=== PATIENT | female | born 1985 | race Caucasian/White ===

== ENCOUNTER 2017-02-05 09:11 | Emergency (ER) | payer OTHER ==
[2017-02-05 09:16] VITALS: RESP 18
[2017-02-05 09:42] LABS: Appearance,Urine Clear (Clear); Bilirubin,Urine Negative (Negative); Glucose,Urine (UA) Negative (Negative); Ketones,Urine Negative (Negative); Leukocyte Esterase,Urine Negative (Negative); Nitrite,Urine Negative (Negative); PH, Urine 5.5 (5.0-8.0); Particle Count 1326; Protein,Urine Negative (Negative); RBC,Urine 108 /hpf (0-5); Specific Gravity,Urine 1.008 (1.001-1.035); Squamous Epithelial Cell,Urine <1 /hpf (0-4); UA Billing (MACRO vs. MICRO) MICRO; Urobilinogen,Urine <2.0 mg/dL (<2.0); WBC,Urine 2 /hpf (0-5)
[2017-02-05 10:59] VITALS: PULSE 76
--- NOTE | 2017-02-05 11:25 | ED ---
General Adult HPI - General Chief complaint: Vaginal Bleeding Stated complaint: preg/bleeding Time Seen by Provider: 02/05/17 09:20 Source: patient Mode of arrival: ambulatory Limitations: no limitations - Related Data Home Medications Medication Instructions Recorded Confirmed Zfo-Qixk-Dglfx Acid 1 cap PO DAILY 02/05/17 02/05/17 [-U Capsule (formulary)] Allergies Allergy/AdvReac Type Severity Reaction Status Date / Time sumatriptan [From Imitrex] Allergy Anaphylaxis Verified 02/05/17 09:41 sumatriptan succinate Allergy Anaphylaxis Verified 02/05/17 09:41 [From Imitrex] Review of Systems ROS Statement: Those systems with pertinent positive or pertinent negative responses have been documented in the HPI. ROS Other: All systems not noted in ROS Statement are negative. Past Medical History Past Medical History: No Reported History Additional Past Medical History / Comment(s): Hx of Migraine headaches r/t occipital nerve damage, no current med tx. History of Any Multi-Drug Resistant Organisms: None Reported Past Surgical History: Section, Cholecystectomy Additional Past Surgical History / Comment(s): right ring finger reattached 2007 , Thrombectomy Past Anesthesia/Blood Transfusion Reactions: No Reported Reaction Additional Past Anesthesia/Blood Transfusion Reaction / Comment(s): no history Past Psychological History: No Psychological Hx Reported Smoking Status: Former smoker Past Alcohol Use History: Occasional Past Drug Use History: None Reported - Past Family History Mother Family Medical History: Diabetes Mellitus, Hyperlipidemia Father History Unknown: Yes General Exam Limitations: no limitations Course Vital Signs 02/05/17 02/05/17 09:12 10:58 Temperature 99.0 F Pulse Rate 89 76 Respiratory 18 18 Rate Blood Pressure 150/90 97/56 O2 Sat by Pulse 99 100 Oximetry Medical Decision Making - Lab Data Lab Results 02/05/17 02/05/17 02/05/17 Range/Units 09:32 09:32 09:32 HCG, Quant 432.4 mIU/mL Urine Color Light Yellow Urine Appearance Clear (Clear) Urine pH 5.5 (5.0-8.0) Ur Specific [place] 1.008 (1.001-1.035) Urine Protein Negative (Negative) Urine Glucose (UA) Negative (Negative) Urine Ketones Negative (Negative) Urine Blood Moderate H (Negative) Urine Nitrite Negative (Negative) Urine Bilirubin Negative (Negative) Urine Urobilinogen <2.0 (<2.0) mg/dL Ur Leukocyte Esterase Negative (Negative) Urine RBC 108 H (0-5) /hpf Urine WBC 2 (0-5) /hpf Ur Squamous Epith Cells <1 (0-4) /hpf Blood Type A Positive Blood Type Recheck No Disposition Clinical Impression: Threatened miscarriage Disposition: HOME SELF-CARE Condition: Good Instructions: Threatened Miscarriage (ED) Additional Instructions: Patient has a follow-up with primary care provider. Patient needs to repeat her blood work in 2 days. Take Tylenol for pain. Return to emergency department if any alarming signs or symptoms occur. Referrals: Melvi Acosta MD [Primary Care Provider] - 1-2 days Time of Disposition: 11:23
[2017-02-05 11:37] VITALS: BP 112/70; TEMP 98.5
== END 2017-02-05 11:40 | disposition home or self-care (01) ==
LOC: EC 09:11
DX: O20.0 Threatened abortion (principal); Z3A.00 Weeks of gestation of pregnancy not specified; Z87.891 Personal history of nicotine dependence; Z88.8 Allergy status to other drugs, medicaments and biological substances
CPT/HCPCS: 36415; 81001; 84702; 86900; 86901; 99283

== ENCOUNTER → 2017-02-07 | Outpatient (CLI) | payer OTHER | END | disposition home or self-care (01) | LOC: LABWHC1 10:08 | PROVIDERS: ATTEND Obstetrics & Gynecology | DX: O20.0 Threatened abortion (principal) | CPT/HCPCS: 36415; 84702 ==

== ENCOUNTER → 2017-02-12 | Outpatient (CLI) | payer OTHER | END | disposition home or self-care (01) | LOC: LABWHC1 12:56 | PROVIDERS: ATTEND Obstetrics & Gynecology | DX: O20.0 Threatened abortion (principal); Z3A.00 Weeks of gestation of pregnancy not specified | CPT/HCPCS: 36415; 84702 ==

== ENCOUNTER → 2017-02-18 | Outpatient (CLI) | payer OTHER | LOC: LAB 20:33 | PROVIDERS: ATTEND Internal Medicine | DX: O02.1 Missed abortion (principal); Z53.9 Procedure and treatment not carried out, unspecified reason ==

== ENCOUNTER → 2017-03-20 | Outpatient (CLI) | payer OTHER | END | disposition home or self-care (01) | LOC: LABWHC1 13:10 | PROVIDERS: ATTEND Obstetrics & Gynecology | DX: O03.9 Complete or unspecified spontaneous abortion without complication (principal) | CPT/HCPCS: 36415; 84702 ==

== ENCOUNTER → 2017-04-16 | Outpatient (CLI) | payer OTHER | END | disposition home or self-care (01) | LOC: LABWHC1 16:13 | PROVIDERS: ATTEND Obstetrics & Gynecology | DX: N92.5 Other specified irregular menstruation (principal) | CPT/HCPCS: 36415; 84702 ==

== ENCOUNTER → 2017-04-21 | Outpatient (CLI) | payer OTHER | END | disposition home or self-care (01) | LOC: LABWHC1 10:35 | PROVIDERS: ATTEND Obstetrics & Gynecology | DX: N92.5 Other specified irregular menstruation (principal) | CPT/HCPCS: 36415; 84702 ==

== ENCOUNTER 2017-05-08 12:38 | Emergency (ER) | payer OTHER ==
--- NOTE | 2017-05-08 13:07 | ED ---
Female Urogenital HPI - General Chief complaint: Vaginal Bleeding Stated complaint: Vaginal Bleeding-8 weeks preg Source: patient Mode of arrival: ambulatory Limitations: no limitations - History of Present Illness Initial comments: Patient is a 31-year-old female who presents for evaluation for vaginal bleeding and lower pelvic cramping. Past medical history as below. Patient is a . 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 She is followed by Dr. Dixon (OB). The cramping started yesterday. Nothing seems to make it better or worse. No radiation of pain. She did not try taking any Tylenol for this pain. She has associated nausea which is an ongoing issue. Thought to be related to morning sickness. She is regularly taking a vitamin. She describes the vaginal bleeding as very mild. Less than a liner. Not soaking through pads. Seems to fluctuate. She discussed this with her OB and recommended coming to the emergency department for further evaluation. No history of sexually transmitted infections. No history of ectopic . She does not know why she keeps having miscarriages. She currently denies fever , chills, headache, changes of vision, URI symptoms, sugars breath, cough, chest pain, vomiting, diarrhea, pain or burning with urination. Last Menstrual Period: 03/13/17 - Related Data Home Medications Medication Instructions Recorded Confirmed Tvf-Tzoj-Ahusj Acid 1 cap PO DAILY 02/05/17 05/08/17 [-U Capsule (formulary)] Previous Rx's Medication Instructions Recorded Nitrofurantoin Monohyd/M-Cryst 100 mg PO Q12HR #14 cap 05/08/17 [Macrobid] Allergies Allergy/AdvReac Type Severity Reaction Status Date / Time sumatriptan [From Imitrex] Allergy Anaphylaxis Verified 05/08/17 13:06 sumatriptan succinate Allergy Anaphylaxis Verified 05/08/17 13:06 [From Imitrex] Review of Systems ROS Statement: Those systems with pertinent positive or pertinent negative responses have been documented in the HPI. ROS Other: All systems not noted in ROS Statement are negative. Past Medical History Past Medical History: No Reported History Additional Past Medical History / Comment(s): Hx of Migraine headaches r/t occipital nerve damage, no current med tx. History of Any Multi-Drug Resistant Organisms: None Reported Past Surgical History: Section, Cholecystectomy Additional Past Surgical History / Comment(s): right ring finger reattached 2008 , Thrombectomy Past Anesthesia/Blood Transfusion Reactions: No Reported Reaction Additional Past Anesthesia/Blood Transfusion Reaction / Comment(s): no history Past Psychological History: No Psychological Hx Reported Smoking Status: Former smoker Past Alcohol Use History: Occasional Past Drug Use History: None Reported - Past Family History Mother Family Medical History: Diabetes Mellitus, Hyperlipidemia Father History Unknown: Yes General Exam Limitations: no limitations General appearance: alert, in no apparent distress, other (Nontoxic appearing) Head exam: Present: atraumatic, normocephalic, normal inspection Eye exam: Present: normal appearance, PERRL, EOMI. Absent: scleral icterus, conjunctival injection, periorbital swelling ENT exam: Present: normal exam, mucous membranes moist Neck exam: Present: normal inspection. Absent: tenderness, meningismus, lymphadenopathy Respiratory exam: Present: normal lung sounds bilaterally. Absent: respiratory distress, wheezes, rales, rhonchi, stridor Cardiovascular Exam: Present: regular rate, normal rhythm, normal heart sounds. Absent: systolic murmur, diastolic murmur, rubs, gallop, clicks GI/Abdominal exam: Present: soft, tenderness, normal bowel sounds, other (Mild suprapubic tenderness. Negative McBurney sign. Soft abdomen. No peritoneal signs.). Absent: distended, guarding, rebound, rigid By manual exam: Present: other (Attempted speculum exam and bimanual exam. Aborted secondary to the patient being in significant amount of pain. There is no obvious vaginal bleeding though it was a limited exam. Cannot feel the cervical os. She did have some right adnexal tenderness. Again the exam is very limited.) Extremities exam: Present: normal inspection, full ROM, normal capillary refill. Absent: tenderness, pedal edema, joint swelling, calf tenderness Back exam: Present: normal inspection Neurological exam: Present: alert, oriented X3, CN II-XII intact Psychiatric exam: Present: normal affect, normal mood Skin exam: Present: warm, dry, intact, normal color. Absent: rash Course Vital Signs 05/08/17 05/08/17 12:51 15:08 Temperature 97 F L 98.2 F Pulse Rate 68 102 H Respiratory 20 16 Rate Blood Pressure 120/84 113/66 O2 Sat by Pulse 100 100 Oximetry Medical Decision Making - Medical Decision Making Patient is a 31-year-old presenting with vaginal bleeding and lower pelvic cramping. History of multiple miscarriages. No history of ectopic. Limited pelvic examination. Apparently had negative STI testing last week at her OB intake exam. We'll order basic labs with type and screen, urinalysis with urine Chlamydia/gonorrhea. Just sound. IV fluids. Tylenol. - Performed pelvic examination with nurse mission manager. Family member in the room but pt stated it was ok for them to stay. Did not tolerate speculum exam. Aborted. Did not tolerate bimanual exam which was also aborted. She did have some pain in the right adnexa though it was a very limited examination. Could not evaluate if the cervical os was opened or closed. Awaiting US findings/labs. 1500: Laboratory findings as below. No significant abnormalities. Rh+. Questionable urinary tract infection. Rx macrobid for asymptomatic pyuria which could possibly cause miscarriage. Beta-hcg appropriate for dates. Ultrasound revealed a single live IUP at about 6 weeks gestation. No evidence of ectopic . I went to discuss the findings with the patient and she was very upset. She started yelling at me in the room. A tech was in the room and witnessed this. Stated "get this fucking IV out of my arm." Then proceeded to be verbally abusive stating "you are a horrible doctor" and "you don't care about me." I was a little taken aback by this as I clearly described my concerns with her hx of recurrent miscarriages upfront. I recommended treatment with abx for ?cervicitis and the pt refused treatment stating "you don't listen to me." She did have negative STI testing at her OB intake earlier this week. However, she did have unprotected sexual intercourse twice since that negative testing. I again attempted to discuss my concerns and reiterate the findings of a threatened miscarriage. I discussed specific signs and symptoms on when to return to the emergency department but the pt cut me off and stated "I'm never coming back here again." I recommended that she follow up with her OB in the next 24 hours. - Lab Data Result diagrams: 05/08/17 13:25 05/08/17 13:25 Lab Results 05/08/17 05/08/17 05/08/17 Range/Units 13:25 13:25 13:25 WBC 7.5 (3.8-10.6) k/uL RBC 4.50 (3.80-5.40) m/uL Hgb 13.0 (11.4-16.0) gm/dL Hct 38.7 (34.0-46.0) % MCV 85.9 (80.0-100.0) fL MCH 28.8 (25.0-35.0) pg MCHC 33.6 (31.0-37.0) g/dL RDW 11.4 L (11.5-15.5) % Plt Count 271 (150-450) k/uL Neutrophils % 71 % Lymphocytes % 20 % Monocytes % 7 % Eosinophils % 1 % Basophils % 1 % Neutrophils # 5.3 (1.3-7.7) k/uL Lymphocytes # 1.5 (1.0-4.8) k/uL Monocytes # 0.5 (0-1.0) k/uL Eosinophils # 0.1 (0-0.7) k/uL Basophils # 0.0 (0-0.2) k/uL Sodium 139 (137-145) mmol/L Potassium 3.7 (3.5-5.1) mmol/L Chloride 105 (98-107) mmol/L Carbon Dioxide 23 (22-30) mmol/L Anion Gap 11 mmol/L BUN 7 (7-17) mg/dL Creatinine 0.60 (0.52-1.04) mg/dL Est GFR (MDRD) Af Amer >60 (>60 ml/min/1.73 sqM) Est GFR (MDRD) Non-Af >60 (>60 ml/min/1.73 sqM) Glucose 106 H (74-99) mg/dL Calcium 9.6 (8.4-10.2) mg/dL Magnesium 1.8 (1.6-2.3) mg/dL Total Bilirubin 0.2 (0.2-1.3) mg/dL AST 17 (14-36) U/L ALT 29 (9-52) U/L Alkaline Phosphatase 36 L (38-126) U/L Total Protein 6.8 (6.3-8.2) g/dL Albumin 4.3 (3.5-5.0) g/dL HCG, Quant 27279.3 mIU/mL Urine Color Urine Appearance (Clear) Urine pH (5.0-8.0) Ur Specific [place] (1.001-1.035) Urine Protein (Negative) Urine Glucose (UA) (Negative) Urine Ketones (Negative) Urine Blood (Negative) Urine Nitrite (Negative) Urine Bilirubin (Negative) Urine Urobilinogen (<2.0) mg/dL Ur Leukocyte Esterase (Negative) Urine RBC (0-5) /hpf Urine WBC (0-5) /hpf Urine Mucus (None) /hpf Urine Sperm (None) /hpf Blood Type A Positive Blood Type Recheck No Antibody Screen NEGATIVE Spec Expiration Date 05/11/2017 - 232405/08/17 Range/Units 13:25 WBC (3.8-10.6) k/uL RBC (3.80-5.40) m/uL Hgb (11.4-16.0) gm/dL Hct (34.0-46.0) % MCV (80.0-100.0) fL MCH (25.0-35.0) pg MCHC (31.0-37.0) g/dL RDW (11.5-15.5) % Plt Count (150-450) k/uL Neutrophils % % Lymphocytes % % Monocytes % % Eosinophils % % Basophils % % Neutrophils # (1.3-7.7) k/uL Lymphocytes # (1.0-4.8) k/uL Monocytes # (0-1.0) k/uL Eosinophils # (0-0.7) k/uL Basophils # (0-0.2) k/uL Sodium (137-145) mmol/L Potassium (3.5-5.1) mmol/L Chloride (98-107) mmol/L Carbon Dioxide (22-30) mmol/L Anion Gap mmol/L BUN (7-17) mg/dL Creatinine (0.52-1.04) mg/dL Est GFR (MDRD) Af Amer (>60 ml/min/1.73 sqM) Est GFR (MDRD) Non-Af (>60 ml/min/1.73 sqM) Glucose (74-99) mg/dL Calcium (8.4-10.2) mg/dL Magnesium (1.6-2.3) mg/dL Total Bilirubin (0.2-1.3) mg/dL AST (14-36) U/L ALT (9-52) U/L Alkaline Phosphatase (38-126) U/L Total Protein (6.3-8.2) g/dL Albumin (3.5-5.0) g/dL HCG, Quant mIU/mL Urine Color Yellow Urine Appearance Clear (Clear) Urine pH 5.5 (5.0-8.0) Ur Specific [place] 1.014 (1.001-1.035) Urine Protein Negative (Negative) Urine Glucose (UA) Negative (Negative) Urine Ketones Trace H (Negative) Urine Blood Large H (Negative) Urine Nitrite Negative (Negative) Urine Bilirubin Negative (Negative) Urine Urobilinogen <2.0 (<2.0) mg/dL Ur Leukocyte Esterase Small H (Negative) Urine RBC 1 (0-5) /hpf Urine WBC 9 H (0-5) /hpf Urine Mucus Rare H (None) /hpf Urine Sperm Few H (None) /hpf Blood Type Blood Type Recheck Antibody Screen Spec Expiration Date Disposition Clinical Impression: Threatened miscarriage, Abdominal pain, Pelvic pain Disposition: HOME SELF-CARE Condition: Good Instructions: Threatened Miscarriage (ED), Abdominal Pain in (ED) Prescriptions: Nitrofurantoin Monohyd/M-Cryst [Macrobid] 100 mg PO Q12HR #14 cap Referrals: Melvi Acosta MD [Primary Care Provider] - 1-2 days Brennan Dixon MD [STAFF PHYSICIAN] - 1-2 days
[2017-05-08] MEDS ORDERED: SODIUM CHLORIDE 0.9% 1,000 ML IV ONE (13:08)
[2017-05-08] MEDS ORDERED: ACETAMINOPHEN TAB 500 MG TAB PO STA (13:08)
[2017-05-08 13:45] LABS: Basophils % (A) 1 %; CH 30.1; CHCM 35.2; Eosinophils # (A) 0.1 k/uL (0-0.7); Eosinophils % (A) 1 %; HCT 38.7 % (34.0-46.0); HDW 2.46; Luc # (Auto) 0.12; Luc % (Auto) 2; Lymphocytes # (A) 1.5 k/uL (1.0-4.8); Lymphocytes % (A) 20 %; MCH 28.8 pg (25.0-35.0); MCHC 33.6 g/dL (31.0-37.0); MCV 85.9 fL (80.0-100.0); Mean Platelet Volume 6.6; Monocytes # (A) 0.5 k/uL (0-1.0); Monocytes % (A) 7 %; Neutrophils # (A) 5.3 k/uL (1.3-7.7); Neutrophils % (A) 71 %; RDW 11.4 % (11.5-15.5); WBC 7.5 k/uL (3.8-10.6)
[2017-05-08 13:50] LABS: Appearance,Urine Clear (Clear); Bilirubin,Urine Negative (Negative); Glucose,Urine (UA) Negative (Negative); Ketones,Urine Trace (Negative); Leukocyte Esterase,Urine Small (Negative); Mucus,Urine Rare /hpf; Nitrite,Urine Negative (Negative); PH, Urine 5.5 (5.0-8.0); Particle Count 3723; Protein,Urine Negative (Negative); RBC,Urine 1 /hpf (0-5); Specific Gravity,Urine 1.014 (1.001-1.035); Sperm,Urine Few /hpf; UA Billing (MACRO vs. MICRO) MICRO; Urobilinogen,Urine <2.0 mg/dL (<2.0); WBC,Urine 9 /hpf (0-5)
[2017-05-08 13:54] LABS: ALT 29 U/L (9-52); AST 17 U/L (14-36); Alkaline Phosphatase 36 U/L (38-126); Anion Gap 11 mmol/L; Blood Urea Nitrogen 7 mg/dL (7-17); Calcium 9.6 mg/dL (8.4-10.2); Carbon Dioxide 23 mmol/L (22-30); Chloride 105 mmol/L (98-107); Glucose 106 mg/dL (74-99); Magnesium 1.8 mg/dL (1.6-2.3); Non-African American GFR(MDRD) >60 (>60 ml/min/1.73 sqM); Potassium 3.7 mmol/L (3.5-5.1); Sodium 139 mmol/L (137-145); Total Bilirubin 0.2 mg/dL (0.2-1.3); Total Protein 6.8 g/dL (6.3-8.2)
--- NOTE | 2017-05-08 14:19 | US ---
EXAMINATION TYPE: US OB <= 14 wk fetus DATE OF EXAM: 05/08/2017 COMPARISON: NONE CLINICAL HISTORY: Pain. Cramping and spotting today, bleeding worse after pelvic exam EXAM PERFORMED: OBTA EXAM MEASUREMENTS: GESTATIONAL AGE / DATING Physician Established: (7 weeks/0 days) EDC: 12/25/2017 Dates by LMP: LMP unknown Dates by First Scan: AMBULANCE DISPATCHER here, U/S yesterday at other facility Dates by Current Scan for: (6 weeks/4 days) EDC: 12/28/2017 MATERNAL ANATOMY Uterus: 8.4 x 5.6 x 5.3cm Right Ovary: 2.7 x 2.5 x 1.8cm Left Ovary: not seen due to overlying bowel gas Post CDS / Adnexa: wnl Presence of free fluid: no Presence of corpus luteal cyst: yes right ov = 1.8cm Presence of subchorionic bleed: no GESTATION / SURVEY CRL: 0.7 (6 weeks/4 days) MSD: wnl Yolk Sac (normal less than 6mm): 0.2cm Heart Rate: 123 bpm Rhythm: Normal IUP: Viable IUP Date of LMP: unknown Beta HcG (if available): pending Single live intrauterine gestation is confirmed as gestational sac, yolk sac, and pole are iden tified. No free fluid is seen in pelvic cul-de-sac. Right ovary is seen. Left ovary is not clearly identified. Within right ovary there is 1.9 cm oval an echoic lesion likely reflecting corpus luteal cyst. No suspicious extraovarian adnexal masses are not ed. IMPRESSION: Single live intrauterine gestation is confirmed, mean crown-rump length is 0.7 cm corresponding to 6 weeks 4 day old fetus.
[2017-05-08] MEDS ORDERED: AZITHROMYCIN 500 MG TAB PO STA (15:00)
[2017-05-08] MEDS ORDERED: cefTRIAXone 250 MG VIAL IM STA (15:00)
[2017-05-08 15:10] VITALS: BP 113/66; PULSE 102; RESP 16; TEMP 98.2
== END 2017-05-08 15:13 | disposition home or self-care (01) ==
LOC: EC 12:38
DX: O20.0 Threatened abortion (principal); Z3A.08 8 weeks gestation of pregnancy; Z87.891 Personal history of nicotine dependence; Z79.899 Other long term (current) drug therapy; Z88.8 Allergy status to other drugs, medicaments and biological substances; Z90.49 Acquired absence of other specified parts of digestive tract
CPT/HCPCS: 36415; 76801; 80053; 81001; 83735; 84702; 85025; 86850; 86900; 86901; 96360; 99284

== ENCOUNTER 2017-09-22 18:34 | Emergency (ER) | payer OTHER ==
[2017-09-22] MEDS ORDERED: AZITHROMYCIN 500 MG in SODIUM CHLORIDE 0.9% 250 ML IVPB STA (19:20)
--- NOTE | 2017-09-22 19:30 | ED ---
General Adult HPI - General Chief complaint: Shortness of Breath Stated complaint: Chest pain, SOB 26 weeks Time Seen by Provider: 09/22/17 19:07 Source: patient Mode of arrival: wheelchair Limitations: no limitations - History of Present Illness Initial comments: Patient presents with cough, states she was diagnosed with pneumonia at outside hospital, states she followed up with her OB doctor today who requested she come to the ER for admission to the hospital. Patient states last she had a CAT scan that showed no pulmonary embolism, however showed interstitial pneumonia. Patient admits to having a cough and feeling short of breath for the past 2 months. Patient states over the past week she has had some brown sputum. Patient states she's been taking Ceftin and azithromycin for the past 5 days. Denies abdominal pain, vaginal bleeding or discharge, urinary symptoms , nausea, vomiting, diarrhea, fevers, chills. - Related Data Home Medications Medication Instructions Recorded Confirmed Ojy-Vhrj-Buwwc Acid 1 cap PO DAILY 02/05/17 09/22/17 [-U Capsule (formulary)] Albuterol Inhaler [Ventolin Hfa 4 puff INHALATION RT-TID PRN 09/22/17 09/22/17 Inhaler] Azithromycin 250 mg PO DAILY 09/22/17 09/22/17 Cefuroxime Axetil [Ceftin] 500 mg PO BID 09/22/17 09/22/17 Allergies Allergy/AdvReac Type Severity Reaction Status Date / Time sumatriptan [From Imitrex] Allergy Anaphylaxis Verified 09/22/17 19:13 sumatriptan succinate Allergy Anaphylaxis Verified 09/22/17 19:13 [From Imitrex] Review of Systems ROS Statement: Those systems with pertinent positive or pertinent negative responses have been documented in the HPI. ROS Other: All systems not noted in ROS Statement are negative. Constitutional: Denies: fever, chills, weakness Eyes: Denies: vision change ENT: Denies: ear pain, throat pain, congestion Respiratory: Reports: cough, dyspnea. Denies: wheezes, hemoptysis, stridor Cardiovascular: Reports: dyspnea on exertion. Denies: chest pain, palpitations , edema, syncope Endocrine: Denies: fatigue Gastrointestinal: Denies: abdominal pain, nausea, vomiting, diarrhea, constipation Genitourinary: Denies: urgency, dysuria, frequency, hematuria Musculoskeletal: Denies: back pain, arthralgia, myalgia Skin: Denies: rash, change in color Neurological: Denies: headache, confusion Past Medical History Past Medical History: No Reported History Additional Past Medical History / Comment(s): H of Migraine headaches r/t occipital nerve damage, no current med tx. History of Any Multi-Drug Resistant Organisms: None Reported Past Surgical History: Section, Cholecystectomy Additional Past Surgical History / Comment(s): right ring finger reattached 2007 , Thrombectomy Past Anesthesia/Blood Transfusion Reactions: No Reported Reaction Additional Past Anesthesia/Blood Transfusion Reaction / Comment(s): no history Past Psychological History: No Psychological Hx Reported Smoking Status: Former smoker Past Alcohol Use History: Occasional Past Drug Use History: None Reported - Past Family History Mother Family Medical History: Diabetes Mellitus, Hyperlipidemia Father History Unknown: Yes General Exam - General Exam Comments Initial Comments: Sitting up in bed smiling. No acute distress. Well appearing. Well-groomed well-dressed. Limitations: no limitations General appearance: alert, in no apparent distress Head exam: Present: atraumatic, normocephalic Eye exam: Present: normal appearance, PERRL, EOMI ENT exam: Present: mucous membranes moist Neck exam: Present: normal inspection, full ROM. Absent: meningismus Respiratory exam: Present: normal lung sounds bilaterally. Absent: respiratory distress, wheezes, rales, rhonchi, stridor, accessory muscle use, decreased breath sounds, prolonged expiratory Cardiovascular Exam: Present: normal rhythm, tachycardia GI/Abdominal exam: Present: soft. Absent: distended, tenderness, guarding, rebound Extremities exam: Present: normal inspection, normal capillary refill. Absent: pedal edema, joint swelling, calf tenderness Neurological exam: Present: alert, oriented X3 Psychiatric exam: Present: normal affect, normal mood Skin exam: Present: warm, dry, intact, normal color. Absent: rash, cyanosis, diaphoretic, erythema Course Vital Signs 09/22/17 09/22/17 09/22/17 19:03 19:53 20:03 Temperature 98.9 F Pulse Rate 125 H 138 H 142 H Respiratory 22 Rate Blood Pressure 146/64 O2 Sat by Pulse 98 Oximetry 09/22/17 09/22/17 20:32 21:41 Temperature 98.1 F Pulse Rate 129 H 130 H Respiratory 18 18 Rate Blood Pressure 130/68 129/78 O2 Sat by Pulse 100 99 Oximetry Medical Decision Making - Medical Decision Making Spoke with patient's OB Dr Dixon, updated with patient condition, he states patient spoke with his office today, he did not seek [place] patient, however he recommended patient go to ER for evaluation. States patient does not need to be admitted if she is well-appearing deemed stable for out-patient therapy. Patient request breathing treatment, ordered. EKG sinus tachycardia, heart rate 129, no ST or T-wave changes appreciated. heart tones done by OB team, FHR 120-130 WBC 15, giving normal elevation in Blood cultures drawn Patient sitting comfortably in bed, remains well-appearing, oxygen saturation remains 99% on room air. Patient has been updated with the results. Patient does not appear septic at this time. Patient no respiratory distress. Patient states she has albuterol inhaler she can use at home. Patient states she has an appointment in 3 days with the day worker. Patient had a CT PE study that was negative for days ago, although patient's heart rate remains elevated, this may be normal for , as well as exacerbated by albuterol treatments , patient has been agree with not repeating CT for PE at this time. Patient afebrile. Patient agrees to continue Ceftin and azithromycin outpatient. Agrees to follow-up with her OB doctor and day worker. Discussed return to ER if new or worsening symptoms including chest pain, increased shortness of breath, fevers. - Lab Data Result diagrams: 09/22/17 19:39 09/22/17 19:39 Lab Results 09/22/17 09/22/17 Range/Units 19:39 19:39 WBC 15.2 H (3.8-10.6) k/uL RBC 3.83 (3.80-5.40) m/uL Hgb 11.2 L (11.4-16.0) gm/dL Hct 32.4 L (34.0-46.0) % MCV 84.4 (80.0-100.0) fL MCH 29.2 (25.0-35.0) pg MCHC 34.6 (31.0-37.0) g/dL RDW 12.6 (11.5-15.5) % Plt Count 233 (150-450) k/uL Neutrophils % 82 % Lymphocytes % 12 % Monocytes % 5 % Eosinophils % 1 % Basophils % 0 % Neutrophils # 12.4 H (1.3-7.7) k/uL Lymphocytes # 1.8 (1.0-4.8) k/uL Monocytes # 0.7 (0-1.0) k/uL Eosinophils # 0.1 (0-0.7) k/uL Basophils # 0.1 (0-0.2) k/uL Sodium 141 (137-145) mmol/L Potassium 3.6 (3.5-5.1) mmol/L Chloride 105 (98-107) mmol/L Carbon Dioxide 21 L (22-30) mmol/L Anion Gap 15 mmol/L BUN 5 L (7-17) mg/dL Creatinine 0.40 L (0.52-1.04) mg/dL Est GFR (CKD-EPI)AfAm >90 (>60 ml/min/1.73 sqM) Est GFR (CKD-EPI)NonAf >90 (>60 ml/min/1.73 sqM) Glucose 111 H (74-99) mg/dL Calcium 9.8 (8.4-10.2) mg/dL Disposition Clinical Impression: CAP (community acquired pneumonia) Disposition: HOME SELF-CARE Condition: Good Instructions: Community Acquired Pneumonia (ED) Additional Instructions: Follow-up with your day worker and OB doctor. Return to ER for new or worsening symptoms including increased shortness of breath, chest pain, fevers Is patient prescribed a controlled substance at discharge?: No Referrals: Melvi Acosta MD [Primary Care Provider] - 1-2 days
[2017-09-22] MEDS ORDERED: IPRATROPIUM-ALBUTEROL 3 ML NEB INHALATION STA (19:39)
[2017-09-22] MEDS: SODIUM CHLORIDE 0.9% 500 ML IV SCH ×2 (19:44→21:41)
[2017-09-22 19:55] LABS: Basophils # (A) 0.1 k/uL (0-0.2); Basophils % (A) 0 %; Eosinophils # (A) 0.1 k/uL (0-0.7); Eosinophils % (A) 1 %; HCT 32.4 % (34.0-46.0); HGB 11.2 gm/dL (11.4-16.0); Lymphocytes # (A) 1.8 k/uL (1.0-4.8); Lymphocytes % (A) 12 %; MCH 29.2 pg (25.0-35.0); MCHC 34.6 g/dL (31.0-37.0); MCV 84.4 fL (80.0-100.0); Mean Platelet Volume 7.7; Monocytes # (A) 0.7 k/uL (0-1.0); Monocytes % (A) 5 %; Neutrophils # (A) 12.4 k/uL (1.3-7.7); Neutrophils % (A) 82 %; Platelet Count 233 k/uL (150-450); RBC 3.83 m/uL (3.80-5.40); RDW 12.6 % (11.5-15.5); WBC 15.2 k/uL (3.8-10.6)
[2017-09-22] MEDS ORDERED: cefTRIAXone IN SWFI 1,000 MG/10 ML SYRINGE IVP SCH (20:00)
[2017-09-22 20:09] LABS: Anion Gap 15 mmol/L; Blood Urea Nitrogen 5 mg/dL (7-17); Calcium 9.8 mg/dL (8.4-10.2); Carbon Dioxide 21 mmol/L (22-30); Chloride 105 mmol/L (98-107); Glucose 111 mg/dL (74-99); Potassium 3.6 mmol/L (3.5-5.1); Sodium 141 mmol/L (137-145)
[2017-09-22 20:33] VITALS: RESP 18; TEMP 98.1
[2017-09-22 21:42] VITALS: BP 129/78; PULSE 130
== END 2017-09-22 22:06 | disposition home or self-care (01) ==
LOC: EC 18:34
DX: O99.512 Diseases of the respiratory system complicating pregnancy, second trimester (principal); J18.9 Pneumonia, unspecified organism; O99.89 Other specified diseases and conditions complicating pregnancy, childbirth and the puerperium; R00.0 Tachycardia, unspecified; Z3A.26 26 weeks gestation of pregnancy; Z87.891 Personal history of nicotine dependence; Z88.8 Allergy status to other drugs, medicaments and biological substances
CPT/HCPCS: 36415; 94640; 93005; 80048; 85025; 87040; 99285; 96365; 96366; 96375; J0456; J0696

== ENCOUNTER 2017-11-17 20:33 | Outpatient (CLI) | payer OTHER ==
[2017-11-17 21:08] LABS: Appearance,Urine Clear (Clear); Bilirubin,Urine Negative (Negative); Blood,Urine Negative (Negative); Color,Urine Yellow; Glucose,Urine (UA) Negative (Negative); Ketones,Urine Negative (Negative); Leukocyte Esterase,Urine Negative (Negative); Nitrite,Urine Negative (Negative); PH, Urine 5.5 (5.0-8.0); Protein,Urine Negative (Negative); Specific Gravity,Urine 1.019 (1.001-1.035); Urobilinogen,Urine <2.0 mg/dL (<2.0)
[2017-11-17 22:17] VITALS: BP 120/79; PULSE 99; RESP 16; TEMP 98
--- NOTE | 2017-12-14 08:34 | P.MSEPDOC ---
Presenting Problems - Arrival Data Date of Arrival on Unit: 11/17/17 Time of Arrival on Unit: 20:33 Mode of Transport: Ambulatory - Complaint OB-Reason for Admission/Chief Complaint: Decreased Movement, Visual Disturbances, PIH, Elevated Blood Pressure, Dizziness Medical History - Information : 6 Para: 1 Term: 0 : 1 Abortions: Spontaneous or Elective: 4 Number of Living Children: 1 - Gestational Age Gestational Age by MAXINE (wks/days): 34 Weeks and 1 Days - History Complications: Preeclampsia Review of Systems - Review of Systems Constitutional: No problems Breast: No problems ENT: No problems Cardiovascular: No problems Respiratory: No problems Gastrointestinal: No problems Genitourinary: No problems Musculoskeletal: No problems Neurological: No problems Skin: No problems Vital Signs - Temperature Temperature: 98.0 F Temperature Source: Temporal Artery Scan - Pulse Right Sitting Brachial Pulse Rate: 99 Pulse Assessment Method: Automatic Cuff - Respirations Respiratory Rate: 16 Oxygen Delivery Method: Room Air O2 Sat by Pulse Oximetry: 99 - Blood Pressure Right Arm Sitting Blood Pressure: 120/79 Blood Pressure Mean: 92 Blood Pressure Source: Automatic Cuff Medical Screen Scoring (Pre) - Cervical Exam Dilation: Exam Deferred Effacement: Exam Deferred Membranes: Intact - Uterine Contractions Frequency: N/A Duration: N/A Intensity: N/A - Maternal Vital Signs Maternal Temperature: N/A Maternal Blood Pressure: N/A Signs of Preeclampsia: N/A Maternal Respirations: N/A - Pain Assessment Pain Location and Character: Head Pain Scale Used: Numeric (1 - 10) Pain Intensity: 2 Pain Management Goal: 1 Pain Description: Dull Pain Frequency: Occasional Pain Duration: 2 Pain Duration Units: Hours Pain Behavior: None Exhibited Pain Aggravating Factors: None - Assessment Baseline FHR: 130 Heart Rate - NICHD Category: Category I (Normal) = 0 NST: Reactive Position: N/A Station: N/A - Total Score Total Score (Pre): 0 - Level of Risk Level of Risk: Low (0-5) Physician Notification (Pre) - Physician Notified Physician Notified Date: 11/17/17 Physician Notified Time: 21:16 Physician/Practitioner Notifed:: DR JENKINS New Order Received: Yes - Notification Comment Comment: pt is to keep apt with Dr Dixon on Friday Disposition - Disposition OB Disposition: Discharge to home, Written follow up instructions reviewed Discharge Date: 11/17/17 Discharge Time: 21:20 I agree with the RN Medical Screening Exam: Yes Risk & Benefit of care provided described in d/c instruction: Yes Diagnosis: DECREASED MOVEMENTS, THIRD TRIMESTER, FETUS 1
== END 2017-11-17 21:20 | disposition home or self-care (01) ==
LOC: FBPOP 20:33
PROVIDERS: ATTEND Obstetrics & Gynecology Obstetrics
DX: O36.8131 Decreased fetal movements, third trimester, fetus 1 (principal); Z3A.34 34 weeks gestation of pregnancy
CPT/HCPCS: 59025; 81003; G0463; 99215

== ENCOUNTER 2017-11-25 16:53 | Inpatient (IN) | payer OTHER ==
[2017-11-25 17:45] LABS: Uric Acid 4.2 mg/dL (3.7-7.4)
[2017-11-25 17:58] LABS: Appearance,Urine Clear (Clear); Bilirubin,Urine Negative (Negative); Blood,Urine Negative (Negative); Color,Urine Light Yellow; Glucose,Urine (UA) Negative (Negative); Ketones,Urine Negative (Negative); Leukocyte Esterase,Urine Negative (Negative); Nitrite,Urine Negative (Negative); PH, Urine 6.5 (5.0-8.0); Protein,Urine Negative (Negative); Specific Gravity,Urine 1.008 (1.001-1.035); Urobilinogen,Urine <2.0 mg/dL (<2.0)
[2017-11-25 17:59] LABS: Basophils % (A) 0 %; Eosinophils # (A) 0.1 k/uL (0-0.7); Eosinophils % (A) 0 %; HCT 32.6 % (34.0-46.0); HGB 10.6 gm/dL (11.4-16.0); Lymphocytes # (A) 1.5 k/uL (1.0-4.8); Lymphocytes % (A) 12 %; MCH 26.8 pg (25.0-35.0); MCHC 32.5 g/dL (31.0-37.0); MCV 82.4 fL (80.0-100.0); Mean Platelet Volume 7.7; Monocytes # (A) 0.7 k/uL (0-1.0); Monocytes % (A) 5 %; Neutrophils # (A) 10.3 k/uL (1.3-7.7); Neutrophils % (A) 80 %; Platelet Count 209 k/uL (150-450); RBC 3.95 m/uL (3.80-5.40); RDW 13.3 % (11.5-15.5); WBC 12.8 k/uL (3.8-10.6)
[2017-11-25] MEDS: LACTATED RINGERS 1,000 ML IV SCH (18:42)
[2017-11-25 19:30] VITALS: BMI 34.0
[2017-11-25] MEDS ORDERED: CITRIC ACID-SODIUM CITRATE 15 ML CUP PO ONE ×2 (19:42→19:44)
[2017-11-25] MEDS ORDERED: ceFAZolin IN SWFI 2 GM/20 ML SYRINGE IVP ONE (19:44)
--- NOTE | 2017-11-25 19:55 | P.HPOB ---
History of Present Illness H&P Date: 11/25/17 Chief Complaint: 35-2/7 weeks, IUGR, nonreassuring status The patient is a 32-year-old 5 para 0131 admitted at 35-2/7 weeks as established by seven-week ultrasound. She is admitted from the office having reported no movement for 5 days prior to today. She had a scheduled ultrasound today which demonstrated intrauterine growth restriction with growth at less than 3rd percentile as well as amniotic fluid index of 6 cm, S/D ratio was normal. NST in the office demonstrated a spontaneous variable deceleration with reasonably normal variability thereafter. Nonetheless, she was sent for further observation as she additionally had elevated blood pressures in the office. On labor and delivery, blood pressures were normal as was all laboratory workup for preeclampsia. The heart tones, however, continued to have minimal variability with random decelerations of uncertain type. She has had nothing to 8 since before noon today. Given the diagnosis of IUGR and borderline oligohydramnios as well as nonreassuring heart tones, the decision was made to proceed with repeat section. She did have a section at her first delivery and had initially requested intraoperative tubal ligation to which we have both now agreed should not be done. Group B strep status is pending. Obstetrical history: 5 para 0131 with a previous section at 36 weeks for preeclampsia. Current statistics are listed in history of present illness. EDC of 12/28/2017 was established by a 7 week ultrasound. Laboratory workup demonstrates a blood type of A+ with a negative antibody screen. Rubella status is immune. The remainder of the laboratory workup was within normal limits. Second trimester Glucola was normal as was early Glucola. Group B strep status is pending as noted above having been done today. Gynecologic history: Unremarkable with no history of any infections to include STDs. Review of Systems Review of systems is confined to history of present illness. Past Medical History Past Medical History: No Reported History Additional Past Medical History / Comment(s): H of Migraine headaches r/t occipital nerve damage, no current med tx. History of Any Multi-Drug Resistant Organisms: None Reported Past Surgical History: Section, Cholecystectomy Additional Past Surgical History / Comment(s): right ring finger reattached 2007 , Thrombectomy Past Anesthesia/Blood Transfusion Reactions: No Reported Reaction Additional Past Anesthesia/Blood Transfusion Reaction / Comment(s): no history Past Psychological History: No Psychological Hx Reported Additional Psychological History / Comment(s): no treatment Smoking Status: Never smoker Past Alcohol Use History: Occasional Additional Past Alcohol Use History / Comment(s): social drinker, hx of smoking x 10 years, 6 per day per pt. quit one month ago, November 2014 Past Drug Use History: None Reported - Past Family History Mother Family Medical History: Diabetes Mellitus, Hyperlipidemia Father History Unknown: Yes Medications and Allergies Home Medications Medication Instructions Recorded Confirmed Type Dno-Dwho-Syczn Acid 1 cap PO DAILY 02/05/17 11/25/17 History [-U Capsule (formulary)] Albuterol Inhaler [Ventolin Hfa 4 puff INHALATION RT-TID PRN 09/22/17 11/25/17 History Inhaler] Beclomethasone Dipropionate [Qvar 2 puff INHALATION BID 11/25/17 11/25/17 History Redihaler] Allergies Allergy/AdvReac Type Severity Reaction Status Date / Time sumatriptan [From Imitrex] Allergy Anaphylaxis Verified 11/25/17 17:09 sumatriptan succinate Allergy Anaphylaxis Verified 11/25/17 17:09 [From Imitrex] Exam - Vital Signs Vital signs: Vital Signs Temp Pulse Resp BP Pulse Ox 11/25/17 19:24 97.6 F 65 16 129/81 11/25/17 17:13 97.6 F 77 18 126/77 99 11/25/17 17:12 97.6 F 77 18 126/77 Intake and Output 11/25/17 11/25/17 11/25/17 06:59 14:59 22:59 Other: Weight 78.925 kg In general, this is a well-developed, well-nourished white female in no acute distress. Her heart has a regular rhythm and rate without murmur. Her lungs are clear to auscultation bilaterally in all yoo. Her abdomen is gravid, nondistended, has normal active bowel sounds, is soft, nontender, and without any palpable masses aside from the uterine fundus. Her extremities are without any cyanosis or clubbing though there is trace to 1+ bilateral lower extremity edema to the ankles. Extremities are nontender to palpation. Digital cervical examination is deferred. Results Result Diagrams: 11/25/17 17:25 Abnormal Lab Results - Last 24 Hours (Table) 11/25/17 Range/Units 17:25 WBC 12.8 H (3.8-10.6) k/uL Hgb 10.6 L (11.4-16.0) gm/dL Hct 32.6 L (34.0-46.0) % Neutrophils # 10.3 H (1.3-7.7) k/uL Assessment and Plan (1) 35 to 36 weeks gestation of Current Visit: Yes Status: Acute Code(s): UOU3707 - SNOMED Code(s): 240257730 (2) IUGR (intrauterine growth restriction) Current Visit: Yes Status: Acute Code(s): WRP8644 - SNOMED Code(s): 98829712 (3) Oligohydramnios Current Visit: Yes Status: Acute Code(s): O41.00X0 - OLIGOHYDRAMNIOS, UNSP TRIMESTER, NOT APPLICABLE OR UNSP SNOMED Code(s): 83373390 (4) Non-reassuring electronic monitoring tracing Current Visit: Yes Status: Acute Code(s): O76 - ABNLT IN HEART RATE AND RHYTHM COMP LABOR AND DELIVERY SNOMED Code(s): 514394734 (5) Previous section Current Visit: Yes Status: Acute Code(s): Z98.891 - HISTORY OF UTERINE SCAR FROM PREVIOUS SURGERY SNOMED Code(s): 622963560 Plan: The patient was initially admitted for further observation and to rule out preeclampsia. All laboratories have been found within normal limits and her blood pressures are normal at rest. Nevertheless, the heart rate tracing is somewhat concerning as there is no long-term variability present and occasional decelerations which are spontaneous of an unclear nature. As she carries a diagnosis of IUGR and borderline oligohydramnios and now has demonstrated a heart tracing which, while not nonreassuring, is not entirely reassuring either, we have opted to proceed with repeat low transverse section at this time. I discussed the situation in the case with the patient at length and she has agreed to proceed.
[2017-11-25] MEDS ORDERED: ONDANSETRON 4 MG/2 ML VIAL ONE (20:05)
[2017-11-25] MEDS ORDERED: LACTATED RINGERS 1,000 ML BAG IV ONE (20:05)
[2017-11-25] MEDS ORDERED: KETOROLAC 30 MG/ML 1 ML VIAL ONE (20:05)
[2017-11-25] MEDS ORDERED: MORPHINE SULFATE (PF) 0.3 MG/0.3 ML SYR ONE (20:05)
[2017-11-25] MEDS ORDERED: NALBUPHINE 10 MG/ML VIAL (10ML MDV) ONE (20:05)
[2017-11-25] MEDS ORDERED: HYDROmorphone (PF) 1 MG/ML ONE (20:05)
[2017-11-25] MEDS ORDERED: ePHEDrine SULFATE/0.9% NACL/PF 50 MG/5 ML SYRINGE IV ONE (20:05)
[2017-11-25] MEDS ORDERED: OXYTOCIN 10 UNIT/ML 1 ML VIAL ONE (20:05)
[2017-11-25] MEDS ORDERED: OXYTOCIN 20 UNITS/1000 ML NS 1,000 ML IV SCH (21:00)
[2017-11-25] MEDS ORDERED: NALOXONE 0.4 MG/ML 1 ML VIAL IV PRN (21:00)
[2017-11-25] MEDS ORDERED: METOCLOPRAMIDE 5 MG/ML 2 ML VIAL IVP PRN (21:00)
[2017-11-25] MEDS ORDERED: diphenhydrAMINE 50 MG CAP PO PRN (21:00)
[2017-11-25] MEDS ORDERED: LANOLIN CREAM 5 GM TUBE TOPICAL PRN (21:00)
[2017-11-25] MEDS ORDERED: diphenhydrAMINE 25 MG CAP PO PRN (21:00)
[2017-11-25] MEDS ORDERED: SIMETHICONE 80 MG CHEWABLE PO PRN (21:00)
[2017-11-25] MEDS ORDERED: LACTATED RINGERS 1,000 ML IV SCH (21:00)
[2017-11-25] MEDS ORDERED: ACETAMINOPHEN TAB 325 MG TAB PO PRN (21:00)
[2017-11-25] MEDS ORDERED: ZOLPIDEM 5 MG TAB PO PRN (21:00)
[2017-11-25] MEDS ORDERED: ONDANSETRON 4 MG/2 ML VIAL IVP PRN (21:00)
[2017-11-25] MEDS ORDERED: diphenhydrAMINE 50 MG/ML 1 ML VIAL IVP PRN ×2 (21:00)
--- NOTE | 2017-11-25 21:11 | P.OP ---
Date of Procedure: 11/25/17 Preoperative Diagnosis: #1. 35-2/7 weeks, previous section #2. IUGR #3. Borderline oligohydramnios #4. Nonreassuring status Postoperative Diagnosis: Same Procedure(s) Performed: #1. Repeat low transverse section Anesthesia: spinal Surgeon: Brennan Dixon Land Conservation Specialist #1: Mckenzie Armstrong Estimated Blood Loss (ml): 500 IV fluids (ml): 1,100 Urine output (ml): 200 Pathology: other (Placenta) Condition: stable Disposition: floor Operative Findings: Please see dictated H&P for indications for proceeding to surgery. The patient was taken to the operating room where she was delivered of a viable 4 lbs. 0 oz. baby boy with Apgars of 8 at 1 minute and 9 at 5 minutes in the direct occiput anterior position. The placenta was delivered manually, intact, and grossly normal with a grossly normal three-vessel cord and was sent for pathological diagnoses. The uterus, tubes, and ovaries were entirely normal to inspection. There was a moderate amount of scarring at the level of the fascia. Description of Procedure: The patient was prepped and draped in usual fashion after spinal anesthesia was administered by the anesthesiologist. A Pfannenstiel incision was made through pre-existing scar and extended into the abdominal cavity with minimal difficulty the other was a moderate amount of scarring at the level of the muscles. The bladder peritoneum was elevated, incised, and reflected distally. A 2 cm incision was made in the transverse plane of the lower uterine segment to enter the uterus at which time clear fluid was noted. The lower uterine segment was significantly thick and the incision was extended in both directions using the bandage scissors as well as bluntly. The head was encountered floating above the level of the incision and was delivered up and through the wound with some difficulty secondary to the tightness of the opening and the lack of engagement. The nose and mouth were thoroughly suctioned on the field. The remainder of the was delivered onto the field where the cord was doubly clamped, cut, and the passed resuscitative measures with weight and Apgars as noted above. A segment of cord was then doubly clamped, cut, and set aside should cord gases become necessary. The placenta was delivered manually, intact, and grossly normal as noted above. The uterus was exteriorized and the interior cavity of the uterus swept of any remaining placental or membranous fragments. The margins of the incision were grasped with Mcleod clamps and the incision closed in 2 layers. The first layer was a running locking stitch of 0 chromic catgut followed by a running imbricating layer of 0 chromic catgut. Hemostasis appeared to be excellent. The posterior cul-de-sac was suctioned using a guard and the uterine and ovarian findings were normal as noted above. The uterus was replaced within the abdominal cavity and the parietal peritoneum was loosely reapproximated. The layer of muscles were examined and found to be hemostatic. The fascia was closed with 2 running stitches of 0 Vicryl proceeding from the lateral margins to the midpoint. The subcutaneous tissues were irrigated, made hemostatic with the Bovie, and reapproximated with a running stitch of 30 plain catgut. The skin was reapproximated with a running subcuticular stitch of 4-0 Vicryl followed by half-inch Steri-Strips placed with Mastisol. Estimated blood loss for the case was approximate 500 mL. There were no complications. All sponge, instrument, and needle counts were correct. The patient tolerated the procedure well and proceeded to the recovery room in stable condition. Both mother and are resting comfortably in recovery of the has been taken to special care nursery by protocol secondary to early gestation and low weight.
[2017-11-26] MEDS: KETOROLAC 30 MG/ML 1 ML VIAL IVP PRN ×2 (03:36→09:43)
[2017-11-26 07:06] LABS: Basophils % (A) 0 %; Eosinophils % (A) 0 %; Lymphocytes # (A) 0.8 k/uL (1.0-4.8); Lymphocytes % (A) 7 %; MCH 27.7 pg (25.0-35.0); MCHC 33.6 g/dL (31.0-37.0); MCV 82.5 fL (80.0-100.0); Mean Platelet Volume 8.5; Monocytes # (A) 0.7 k/uL (0-1.0); Monocytes % (A) 6 %; Neutrophils # (A) 10.4 k/uL (1.3-7.7); Neutrophils % (A) 86 %; Platelet Count 167 k/uL (150-450); RBC 3.27 m/uL (3.80-5.40); RDW 13.5 % (11.5-15.5); WBC 12.1 k/uL (3.8-10.6)
[2017-11-26 07:07] LABS: HGB 9.1 gm/dL (11.4-16.0)
[2017-11-26] MEDS: LACTATED RINGERS 1,000 ML IV SCH (07:28)
--- NOTE | 2017-11-26 08:48 | P.PNOBGPC ---
Subjective - Subjective Patient reports: Reports appetite normal, Reports voiding normally, Reports pain well controlled, Reports ambulating normally : doing well, in NICU (Infant doing well, weaning from oxygen, will likely remain in special care secondary to size.) Objective - Vital Signs Latest vital signs: Vital Signs Temp Pulse Resp BP Pulse Ox 11/26/17 03:15 98.4 F 93 16 124/73 99 11/25/17 23:01 96.9 F L 80 16 129/77 100 11/25/17 22:31 61 16 134/84 99 11/25/17 22:01 71 16 126/83 98 11/25/17 21:46 69 16 116/78 96 11/25/17 21:31 73 16 118/73 98 11/25/17 21:16 86 16 129/79 98 11/25/17 21:01 96.9 F L 74 16 123/77 95 11/25/17 19:24 97.6 F 65 16 129/81 11/25/17 17:13 97.6 F 77 18 126/77 99 11/25/17 17:12 97.6 F 77 18 126/77 Intake and Output 11/25/17 11/26/17 11/26/17 22:59 06:59 14:59 Output Total 400 1200 Balance -400 -1200 Output: Urine 400 1200 Uretheral (Salazar) 400 Other: Voiding Method Indwelling Catheter Indwelling Catheter Weight 78.925 kg - Exam Extremities: Present: normal Abdomen: Present: normal appearance, soft. Absent: distention, tenderness Incision: Present: normal, dry, intact Uterus: Present: normal, firm (The uterine fundus as tonic and nontender just below the umbilicus.) - Labs Labs: Abnormal Lab Results - Last 24 Hours (Table) 11/25/17 11/26/17 Range/Units 17:25 06:39 WBC 12.8 H 12.1 H (3.8-10.6) k/uL RBC 3.27 L (3.80-5.40) m/uL Hgb 10.6 L 9.1 L D (11.4-16.0) gm/dL Hct 32.6 L 27.0 L (34.0-46.0) % Neutrophils # 10.3 H 10.4 H (1.3-7.7) k/uL Lymphocytes # 0.8 L (1.0-4.8) k/uL Assessment and Plan (1) 35 to 36 weeks gestation of Current Visit: Yes Status: Acute Code(s): CCV4336 - SNOMED Code(s): 364378621 (2) IUGR (intrauterine growth restriction) Current Visit: Yes Status: Acute Code(s): QLS2966 - SNOMED Code(s): 86257343 (3) Oligohydramnios Current Visit: Yes Status: Acute Code(s): O41.00X0 - OLIGOHYDRAMNIOS, UNSP TRIMESTER, NOT APPLICABLE OR UNSP SNOMED Code(s): 98793135 (4) Non-reassuring electronic monitoring tracing Current Visit: Yes Status: Acute Code(s): O76 - ABNLT IN HEART RATE AND RHYTHM COMP LABOR AND DELIVERY SNOMED Code(s): 205861078 (5) Previous section Current Visit: Yes Status: Acute Code(s): Z98.891 - HISTORY OF UTERINE SCAR FROM PREVIOUS SURGERY SNOMED Code(s): 711055893 (6) S/P section Current Visit: Yes Status: Acute Code(s): Z98.891 - HISTORY OF UTERINE SCAR FROM PREVIOUS SURGERY SNOMED Code(s): 629262040 Plan: Continue routine post operative and care. The will likely remain in special care nursery for some time meaning that the patient may take advantage of the timekeeping supervisor allotted for post section. I have encouraged her to ambulate the hallways routinely. She is tolerating regular diet otherwise.
[2017-11-26] MEDS: SENNOSIDES-DOCUSATE SODIUM 1 EACH TAB PO SCH ×2 (09:42→20:11)
--- NOTE | 2017-11-26 10:12 | P.PN ---
Progress Note - Text Anesthesia POD 1. Patient is status post section under spinal anesthesia with intra-thecal preservative free morphine 300 g. Mild pruritus, good post-op analgesia requiring Toradol IV 1, and no headache or other complication.
[2017-11-26] MEDS ORDERED: CALCIUM CARBONATE 500 MG CHEWABLE PO PRN (11:41)
[2017-11-26] MEDS: HYDROcodone/APAP 5-325MG 1 EACH TAB PO PRN ×2 (14:37→20:31)
[2017-11-26] MEDS ORDERED: ONDANSETRON 4 MG TAB PO PRN (20:46)
[2017-11-26] MEDS: IBUPROFEN 600 MG TAB PO PRN (22:26)
[2017-11-27] MEDS: HYDROcodone/APAP 5-325MG 1 EACH TAB PO PRN (00:24)
[2017-11-27 00:27] VITALS: RESP 16
[2017-11-27] MEDS: HYDROcodone/APAP 7.5-325MG 1 EACH TAB PO PRN ×3 (04:05→15:49)
[2017-11-27] MEDS: IBUPROFEN 600 MG TAB PO PRN ×2 (07:53→14:16)
[2017-11-27] MEDS: SENNOSIDES-DOCUSATE SODIUM 1 EACH TAB PO SCH (07:55)
[2017-11-27 08:19] VITALS: BP 120/89; PULSE 88; TEMP 97.9
--- NOTE | 2017-11-27 08:44 | P.PNOBGPC ---
Subjective - Subjective Interval history: Patient reports more pain on the left side of the incision than right. Patient reports: Reports appetite normal, Reports voiding normally, Reports pain well controlled, Reports ambulating normally : doing well, in NICU Objective - Vital Signs Latest vital signs: Vital Signs Temp Pulse Resp BP Pulse Ox 11/27/17 08:00 97.9 F 88 16 120/89 11/27/17 00:27 98.1 F 74 16 121/68 96 11/26/17 20:09 98.4 F 87 18 132/80 98 11/26/17 16:00 98.3 F 95 16 123/75 98 11/26/17 12:00 98.3 F 66 18 118/72 100 - Exam Extremities: Present: normal Abdomen: Present: normal appearance, soft. Absent: distention, tenderness Incision: Present: normal, dry, intact Uterus: Present: normal, firm (The uterine fundus as tonic and nontender just below the umbilicus.) Assessment and Plan (1) 35 to 36 weeks gestation of Current Visit: Yes Status: Acute Code(s): PWY8754 - SNOMED Code(s): 889042321 (2) IUGR (intrauterine growth restriction) Current Visit: Yes Status: Acute Code(s): UQB5673 - SNOMED Code(s): 54905784 (3) Oligohydramnios Current Visit: Yes Status: Acute Code(s): O41.00X0 - OLIGOHYDRAMNIOS, UNSP TRIMESTER, NOT APPLICABLE OR UNSP SNOMED Code(s): 56420908 (4) Non-reassuring electronic monitoring tracing Current Visit: Yes Status: Acute Code(s): O76 - ABNLT IN HEART RATE AND RHYTHM COMP LABOR AND DELIVERY SNOMED Code(s): 555717340 (5) Previous section Current Visit: Yes Status: Acute Code(s): Z98.891 - HISTORY OF UTERINE SCAR FROM PREVIOUS SURGERY SNOMED Code(s): 984354261 (6) S/P section Current Visit: Yes Status: Acute Code(s): Z98.891 - HISTORY OF UTERINE SCAR FROM PREVIOUS SURGERY SNOMED Code(s): 646747981 Plan: Continue routine post operative and care. As the remains and special care nursery, the patient will continue to remain on labor and delivery until tomorrow or perhaps the following day.
--- NOTE | 2017-12-05 09:55 | P.DS ---
Providers Date of admission: 11/25/17 18:36 Expected date of discharge: 11/28/17 Attending physician: Brennan Dixon Primary care physician: Stated None - Discharge Diagnosis(es) (1) 35 to 36 weeks gestation of Status: Acute (2) IUGR (intrauterine growth restriction) Status: Acute (3) Oligohydramnios Status: Acute (4) Non-reassuring electronic monitoring tracing Status: Acute (5) Previous section Status: Acute (6) S/P section Status: Acute Hospital Course: The patient is a 32-year-old 5 para 0131 admitted at 35-2/7 weeks by good dating parameters. She is admitted after having had some borderline heart tones on nonstress test in the office. Ultrasound carried out on the [facility] admission demonstrated significant IUGR with growth at less than the 3rd percentile and an amniotic fluid index of 6 cm. She was admitted to the hospital where she had further ongoing surveillance and never demonstrated any significant reactivity. The decision was made to proceed with delivery and she had previously requested repeat low transverse section. She was taken the operating room where she was delivered of a viable 4 lbs. 0 oz. baby boy with Apgars of 8 at 1 minute and 9 at 5 minutes. The infant was taken to the special care nursery secondary to prematurity and size where he appeared to be doing well for the first 24-48 hours. The patient had an unremarkable postoperative course and remained in the hospital simply because her remained in the nursery. On the evening of postoperative day #2, the infant was found to have a likely intracranial hemorrhage and was, as a result, transferred to a tertiary care institution. The patient therefore was discharged to follow the . She was discharged home to follow-up in the office in 2 weeks for an incision check and 6 weeks routinely. Discharge instructions included calling for any significantly increased bleeding or foul- smelling lochia, significantly increased fever or abdominal pain, perineal complaints, breast complaints, incisional complaints, or anything else that concerned her. She was additionally instructed to have nothing in the vagina for at least 6 weeks time to include intercourse. She was additionally instructed to do no heavy lifting over the same period of time. She understood her instructions and agrees to follow up as noted above. Discharge medications included continued vitamins as she has opted to breast-feed. She was to use [id number] analgesic pain medications as needed. Maternal blood type is A+ and rubella status is immune. Discharge hemoglobin and hematocrit were 9.1 and 27.0 respectively prompting the suggestion of use of iron sulfate 325 mg daily for the next month. Procedures: #1. Repeat low transverse section Patient Condition at Discharge: Stable Plan - Discharge Summary New Discharge Prescriptions: No Action Dsc-Cstk-Zwwui Acid [-U Capsule (formulary)] 1 cap PO DAILY Albuterol Inhaler [Ventolin Hfa Inhaler] 4 puff INHALATION RT-TID PRN PRN Reason: Shortness Of Breath Beclomethasone Dipropionate [Qvar Redihaler] 2 puff INHALATION BID Discharge Medication List Zds-Tknk-Fllws Acid [-U Capsule (formulary)] 1 cap PO DAILY [History] Albuterol Inhaler [Ventolin Hfa Inhaler] 4 puff INHALATION RT-TID PRN 09/22/17 [ History] Beclomethasone Dipropionate [Qvar Redihaler] 2 puff INHALATION BID 11/25/17 [ History] Follow up Appointment(s)/Referral(s): Brennan Dixon MD [STAFF PHYSICIAN] - 2 Weeks Discharge Disposition: HOME SELF-CARE
== END 2017-11-27 15:45 | disposition home or self-care (01) | DRG 765 ==
LOC: FBPOP 16:53 → OBSVTOIN 18:36 → 4FBP 18:36
PROVIDERS: ADMIT Obstetrics & Gynecology; ATTEND Obstetrics & Gynecology
PROC: 10D00Z1 Extraction of Products of Conception, Low, Open Approach (ICD-10-PCS; principal; 2017-11-25 20:05)
DX: O41.03X0 Oligohydramnios, third trimester, not applicable or unspecified (principal); O99.354 Diseases of the nervous system complicating childbirth; O36.5930 Maternal care for other known or suspected poor fetal growth, third trimester, not applicable or unspecified; O34.211 Maternal care for low transverse scar from previous cesarean delivery; G43.909 Migraine, unspecified, not intractable, without status migrainosus; O76 Abnormality in fetal heart rate and rhythm complicating labor and delivery; Z3A.35 35 weeks gestation of pregnancy; Z37.0 Single live birth; Z87.891 Personal history of nicotine dependence; Z83.3 Family history of diabetes mellitus; Z83.49 Family history of other endocrine, nutritional and metabolic diseases; Z79.899 Other long term (current) drug therapy; Z88.8 Allergy status to other drugs, medicaments and biological substances; Z90.49 Acquired absence of other specified parts of digestive tract; Z87.828 Personal history of other (healed) physical injury and trauma; Z86.79 Personal history of other diseases of the circulatory system
CPT/HCPCS: 59025; 81003; 84450; 84460; 84550; 85025; 86850; 86900; 86901; 88307; 99215

== ENCOUNTER → 2018-10-20 | Outpatient (CLI) | payer OTHER ==
--- NOTE | 2018-10-20 21:16 | US ---
EXAMINATION TYPE: Transabdominal DATE OF EXAM: 10/20/2018 7:15 PM COMPARISON: NONE CLINICAL HISTORY: Z34.91 first trimester . Abnormal findings on imaging test. Hx ovarian cys ts. 2 C-Sections. . EXAM PERFORMED: Transvaginal (TV) and Transabdominal (TA) *Transvaginal suggested on order. EXAM MEASUREMENTS: GESTATIONAL AGE / DATING Physician Established: Not yet established Dates by LMP: 08/18/2018 (9 weeks/0 days) EDC: 05/25/2019 Dates by First Scan: This is first scan Dates by Current Scan for: ( 9 weeks/0 days) EDC: 05/25/2019 MATERNAL ANATOMY Uterus: 11.3 x 7.6 x 6.7. Multiple anechoic areas seen in cervix. Right Ovary: 4.6 x 2.9 x 2.6 Left Ovary: 3.2 x 1.5 x 1.5 Post CDS / Adnexa: No fluid seen Presence of free fluid: None seen Presence of corpus luteal cyst: Area of mixed echogenicity and peripheral vascularity seen right ovar y measurin.5 x 2.3 x 1.8 cm Presence of subchorionic bleed: Hypoechoic area seen inferior tot he gestational sac measurin.0 x 1.0 x 0.9 cm GESTATION / SURVEY CRL: 2.3 cm (9 weeks/0 days) Yolk Sac (normal less than 6mm): 0.36 Heart Rate: 170 bpm Rhythm: Normal IUP: Viable IUP Anechoic area seen adjacent to the pole measurin.0 x 0.7 x 0.9 cm. Date of LMP: 08/18/2018 Beta HcG (if available): N/A Single live intrauterine gestation is confirmed as gestational sac, yolk sac, and pole are pres ent. Adjacent to gestational sac there is small heterogeneous hypoechoic fluid collection measuring 2 .0 x 1.0 x 0.9 cm towards end of study inferiorly likely reflecting implantation bleed or small subch orionic hemorrhage. No free fluid in pelvic cul-de-sac. Incidental nabothian cysts in the cervix. Both ovaries are seen. Within right ovary there is 2.0 cm oval anechoic lesion with thick wall and mckeon rrounding vascularity felt to reflect corpus luteal cyst. No suspicious extraovarian adnexal lesions are seen IMPRESSION: Single live intrauterine gestation is confirmed, mean crown-rump length is 2.3 cm corresponding to 9 weeks 0 day old fetus.
== END | disposition home or self-care (01) ==
LOC: RADUSMAIN 17:53
PROVIDERS: ATTEND Family Medicine
DX: O34.81 Maternal care for other abnormalities of pelvic organs, first trimester (principal); Z3A.09 9 weeks gestation of pregnancy
CPT/HCPCS: 76801; 76817

== ENCOUNTER → 2020-08-07 | Outpatient (CLI) | payer OTHER ==
[2020-08-07 23:48] LABS: Basophils # (A) 0.03 X 10*3/uL (0.00-0.10); Basophils % (A) 0.6 %; Eosinophils # (A) 0.09 X 10*3/uL (0.04-0.35); Eosinophils % (A) 1.7 %; HCT 38.5 % (37.2-46.3); HGB 12.7 g/dL (12.0-15.0); Lymphocytes # (A) 1.66 X 10*3/uL (0.90-5.00); Lymphocytes % (A) 30.6 %; MCH 29.1 pg (27.0-32.0); MCV 88.3 fL (80.0-97.0); Mean Platelet Volume 10.5 fL (9.5-12.2); Monocytes # (A) 0.53 X 10*3/uL (0.20-1.00); Monocytes % (A) 9.8 %; Neutrophils % (A) 57.1 %; Platelet Count 258 X 10*3/uL (140-440); RBC 4.36 X 10*6/uL (4.10-5.20); RDW 11.7 % (11.5-14.5); WBC 5.42 X 10*3/uL (4.50-10.00)
[2020-08-08 04:41] LABS: Folate, Serum 9.8 ng/mL
[2020-08-08 04:59] LABS: ALT 19 U/L (8-44); AST 19 U/L (13-35); African American GFR (CKD) 113.1 (60.0-200.0); Albumin/Globulin Ratio 2.14 (1.60-3.17); Alkaline Phosphatase 40 U/L (41-126); Bilirubin, Conjugated <0.20 mg/dL (0.20-0.40); Calcium 9.5 mg/dL (8.7-10.3); Carbon Dioxide 25.5 mmol/L (21.6-31.8); Chloride 108 mmol/L (96-109); Globulin 2.2 g/dL (1.6-3.3); Glucose 90 mg/dL (70-110); Non-African American GFR(CKD) 97.6 (60.0-200.0); Potassium 4.1 mmol/L (3.5-5.5); Sodium 142 mmol/L (135-145); Total Bilirubin 0.3 mg/dL (0.2-1.2); Total Protein 6.9 g/dL (6.2-8.2)
== END | disposition home or self-care (01) ==
LOC: LABWHC1 16:00
PROVIDERS: ATTEND Clinical Nurse Specialist Psychiatric/Mental Health, Community
DX: R53.82 Chronic fatigue, unspecified (principal); F34.89 Other specified persistent mood disorders; Z79.899 Other long term (current) drug therapy
CPT/HCPCS: 36415; 80053; 82248; 82746; 83090; 84439; 84443; 84481; 85025